=== PATIENT | female | born 1995 | race Caucasian/White ===

== ENCOUNTER 2019-09-28 04:38 | Inpatient (IN) ==
[2019-09-28] MEDS ORDERED: SODIUM BICARB INJ 100 MEQ in STERILE WATER INJ 400 ML IV PRN (06:35)
[2019-09-28] MEDS ORDERED: SODIUM PHOSPHATE IV PRN (06:35)
[2019-09-28] MEDS ORDERED: SODIUM CHLORIDE 0.9% IV PRN (06:35)
[2019-09-28] MEDS ORDERED: MAGNESIUM SULF RIDER 4 GM in PREMIX 1 EACH IV PRN (06:35)
[2019-09-28] MEDS ORDERED: DEXTROSE 10% 25 GM/250 ML BAG IV PRN ×2 (06:35)
[2019-09-28] MEDS ORDERED: MAGNESIUM SULF RIDER 2 GM in PREMIX 1 EACH IV PRN (06:35)
[2019-09-28] MEDS ORDERED: SODIUM CHLORIDE 0.9% 1,000 ML IV SCH (06:37)
[2019-09-28 06:57] LABS: Apearance,Urine CLEAR (Clear); Bacteria,Urine Occasional /HPF (Few); Bilirubin,Urine Negative (Negative); Blood, Urine Moderate mg/dL (Negative); Glucose,Urine (UA) >=500 mg/dL (Negative); Ketones,Urine 80 mg/dL (Negative); Mucus,Urine Occasional /LPF (Occasional); Nitrite,Urine Negative (Negative); Protein,Urine 100 MG/DL; RBC,Urine 32 /HPF (0-4); Squamous Epithelial Cell,Urine Occasional /HPF (0-10); Urine Color Yellow (Yellow); Urine Specific Gravity 1.017 (1.001-1.035); Urine Urobilinogen < 2.0 EU/DL (0.2-1.0); WBC,Urine 1 /HPF (0-6)
[2019-09-28 07:21] LABS: ABG Base Excess -21.6 MMOL/L (-2.5-2.5); ABG HCO3 3.7 MMOL/L (20-26); ABG Oxygen Saturation 98.2 % (95-100); Allen Test Positive
[2019-09-28 07:23] LABS: ABG PCO2 9.8 MM HG (35-48); ABG PH 7.195 (7.35-7.45)
[2019-09-28] MEDS ORDERED: ONDANSETRON 4 MG/2 ML VIAL ONE (07:58)
[2019-09-28] MEDS ORDERED: SODIUM BICARBONATE 50 MEQ/50 ML VIAL IV ONE ×3 (07:58→08:30)
[2019-09-28] MEDS: INSULIN REGULAR DRIP 100 ML IV SCH (08:06)
[2019-09-28] MEDS: ONDANSETRON 4 MG/2 ML VIAL IV PRN (08:22)
[2019-09-28] MEDS: PIPERACILLIN/TAZOBACTAM 3,375 MG in SODIUM CHLORIDE 0.9% 100 ML IV SCH ×2 (08:35→16:43)
[2019-09-28] MEDS: ENOXAPARIN 40 MG/0.4 ML SYRINGE SUBCUT SCH (08:36)
[2019-09-28 08:54] LABS: Basophils # 0.1 10*3/uL (0.0-0.2); Basophils % 0.3 % (0.0-0.8); Hematocrit 43.1 VOL% (35.7-47.0); Hemoglobin 13.1 GM/DL (12.0-16.0); Immature Granulocytes % 1.5 %; Immature Granulocytes Absolute 0.34 #; Lymphocytes # 1.7 10*3/uL (1.4-4.0); Lymphocytes % 7.5 % (21.3-54.2); Mean Corpuscular HGB Conc 30.4 GM/DL (32-36); Mean Corpuscular Volume 94.9 FL (87-102); Mean Platelet Volume 11.1 FL (9.6-12.0); Monocytes % 6.9 % (1.7-12.7); Neutrophils % 83.8 % (38.7-73.9); Platelet Count 344 T/CUMM (130-400); Red Blood Count 4.54 MC/CUMM (3.8-5.5); Red Cell Distribution Width 13.1 % (9.3-17.3); White Blood Count 22.5 T/CUMM (4-12)
[2019-09-28 09:14] LABS: Band Neutrophils 2 % (0-10); Hypochromasia Slight; Lymphocytes 8 % (20-55); Platelet Estimate Adequate; Segmented Neutrophils 83 % (50-85); Total Cells Counted 100
[2019-09-28 09:22] LABS: Calcium 8.4 MG/DL (8.5-10.1); Osmolality,Calculated 285.3 MOS/KG (273-304)
[2019-09-28] MEDS ORDERED: SODIUM BICARB INJ 100 MEQ in DEXTROSE 5% 1,000 ML IV SCH (11:00)
[2019-09-28 11:50] LABS: Calcium 7.7 MG/DL (8.5-10.1)
[2019-09-28 12:19] LABS: ABG Base Excess -19.9 MMOL/L (-2.5-2.5); ABG HCO3 10.1 MMOL/L (20-26); ABG Oxygen Saturation 98.7 % (95-100); ABG PH 7.249 (7.35-7.45); ABG TCO2 5.7 MMOL/L (23-27)
[2019-09-28 12:20] LABS: Allen Test Positive
[2019-09-28] MEDS: SODIUM CHLORIDE 0.45% 1,000 ML IV SCH ×3 (12:30→21:21)
[2019-09-28] MEDS: FLUoxetine 20 MG CAPSULE PO SCH (13:05)
[2019-09-28 13:11] LABS: ABG PCO2 14.4 MM HG (35-48)
[2019-09-28 15:50] LABS: Calcium 8.1 MG/DL (8.5-10.1); Osmolality,Calculated 283.5 MOS/KG (273-304)
[2019-09-28 19:56] LABS: Calcium 7.9 MG/DL (8.5-10.1); Osmolality,Calculated 280.1 MOS/KG (273-304)
[2019-09-28] MEDS ORDERED: DEXTROSE 50% 25 GM/50 ML VIAL IV PRN (20:10)
[2019-09-28] MEDS ORDERED: GLUCAGON 1 MG VIAL IM PRN (20:10)
[2019-09-28] MEDS ORDERED: DEXTROSE 10% 250 ML IV ONE (20:36)
[2019-09-28] MEDS: SODIUM BICARB INJ 50 MEQ in DEXTROSE 5% 1,000 ML IV SCH (20:59)
[2019-09-28 22:32] LABS: Calcium 7.8 MG/DL (8.5-10.1); Osmolality,Calculated 276.7 MOS/KG (273-304)
[2019-09-28] MEDS: POTASSIUM CHLORIDE RIDER 10 MEQ in PREMIX 1 EACH IV PRN (23:00)
[2019-09-29] MEDS: SODIUM BICARB INJ 50 MEQ, POTASSIUM CHLORIDE INJ 20 MEQ in DEXTROSE 5% 1,000 ML IV SCH ×2 (00:10→08:19)
[2019-09-29] MEDS: POTASSIUM CHLORIDE RIDER 10 MEQ in PREMIX 1 EACH IV PRN ×3 (00:12→04:25)
[2019-09-29] MEDS: PIPERACILLIN/TAZOBACTAM 3,375 MG in SODIUM CHLORIDE 0.9% 100 ML IV SCH ×3 (02:10→17:49)
[2019-09-29 02:31] LABS: Basophils % 0.3 % (0.0-0.8); Eosinophils # 0.1 10*3/uL (0.0-0.87); Eosinophils % 0.7 % (0.00-10.9); Hematocrit 35.8 VOL% (35.7-47.0); Hemoglobin 11.6 GM/DL (12.0-16.0); Immature Granulocytes % 0.6 %; Immature Granulocytes Absolute 0.07 #; Lymphocytes # 2.4 10*3/uL (1.4-4.0); Lymphocytes % 20.2 % (21.3-54.2); Mean Corpuscular HGB Conc 32.4 GM/DL (32-36); Mean Corpuscular Volume 89.3 FL (87-102); Mean Platelet Volume 10.2 FL (9.6-12.0); Monocytes % 6.3 % (1.7-12.7); Neutrophils % 71.9 % (38.7-73.9); Platelet Count 278 T/CUMM (130-400); Red Blood Count 4.01 MC/CUMM (3.8-5.5); Red Cell Distribution Width 13.2 % (9.3-17.3); White Blood Count 11.6 T/CUMM (4-12)
[2019-09-29 02:44] LABS: Calcium 7.9 MG/DL (8.5-10.1); Osmolality,Calculated 276.8 MOS/KG (273-304)
[2019-09-29] MEDS: SODIUM BICARB INJ 50 MEQ in DEXTROSE 5% 1,000 ML IV SCH (06:38)
[2019-09-29 08:13] LABS: Calcium 7.9 MG/DL (8.5-10.1); Osmolality,Calculated 276.5 MOS/KG (273-304)
[2019-09-29] MEDS ORDERED: DEXT 5% NACL 0.45% KCL 40 MEQ 40 MEQ/1,000 ML BAG IV SCH (08:30)
[2019-09-29] MEDS ORDERED: INSULIN NPH/REGULAR 70/30 100 UNIT/ML SUBCUT SCH ×2 (08:30→16:30)
[2019-09-29] MEDS: ONDANSETRON 4 MG/2 ML VIAL IV PRN (09:04)
[2019-09-29] MEDS: FLUoxetine 20 MG CAPSULE PO SCH (09:05)
[2019-09-29] MEDS: ENOXAPARIN 40 MG/0.4 ML SYRINGE SUBCUT SCH (09:05)
[2019-09-29] MEDS ORDERED: POTASSIUM PHOSPHATE 30 MMOL in SODIUM CHLORIDE 0.9% 250 ML IV ONE (10:00)
[2019-09-29] MEDS: INSULIN GLARGINE 100 UNIT/ML SUBCUT SCH (11:38)
[2019-09-29] MEDS ORDERED: POTASSIUM CHLORIDE INJ 40 MEQ in SODIUM CHLORIDE 0.45% 1,000 ML IV SCH (12:30)
[2019-09-29 12:31] LABS: Calcium 7.7 MG/DL (8.5-10.1)
[2019-09-29] MEDS: INSULIN REGULAR DRIP 100 ML IV SCH (12:35)
[2019-09-29] MEDS ORDERED: DEXTROSE 50% 25 GM/50 ML VIAL IV PRN (15:12)
[2019-09-29] MEDS ORDERED: GLUCAGON 1 MG VIAL IM PRN (15:12)
[2019-09-29] MEDS: INSULIN LISPRO 100 UNIT/ML SUBCUT SCH ×2 (17:48→20:58)
[2019-09-29] MEDS ORDERED: INSULIN GLARGINE 100 UNIT/ML SUBCUT SCH (21:00)
[2019-09-30] MEDS: PIPERACILLIN/TAZOBACTAM 3,375 MG in SODIUM CHLORIDE 0.9% 100 ML IV SCH ×2 (00:38→09:56)
[2019-09-30] MEDS: INSULIN LISPRO 100 UNIT/ML SUBCUT SCH ×4 (07:38→21:55)
[2019-09-30] MEDS: ENOXAPARIN 40 MG/0.4 ML SYRINGE SUBCUT SCH (10:03)
[2019-09-30] MEDS: FLUoxetine 20 MG CAPSULE PO SCH (10:03)
[2019-09-30] MEDS: INSULIN NPH/REGULAR 70/30 100 UNIT/ML SUBCUT SCH (10:03)
[2019-09-30] MEDS: INSULIN GLARGINE 100 UNIT/ML SUBCUT SCH (10:09)
[2019-09-30] MEDS: AMOXICILLIN 875 MG TABLET PO SCH ×2 (11:29→21:59)
[2019-09-30] MEDS ORDERED: INSULIN NPH/REGULAR 70/30 100 UNIT/ML SUBCUT SCH (16:30)
[2019-09-30] MEDS ORDERED: QUEtiapine 25 MG TABLET PO SCH (21:00)
[2019-10-01 04:32] LABS: Basophils % 0.5 % (0.0-0.8); Eosinophils # 0.2 10*3/uL (0.0-0.87); Hematocrit 37.5 VOL% (35.7-47.0); Hemoglobin 12.4 GM/DL (12.0-16.0); Immature Granulocytes % 0.2 %; Immature Granulocytes Absolute 0.01 #; Lymphocytes # 2.3 10*3/uL (1.4-4.0); Lymphocytes % 57.5 % (21.3-54.2); Mean Corpuscular HGB Conc 33.1 GM/DL (32-36); Mean Corpuscular Volume 87.2 FL (87-102); Mean Platelet Volume 10.8 FL (9.6-12.0); Monocytes % 6.7 % (1.7-12.7); Neutrophils % 30.1 % (38.7-73.9); Platelet Count 255 T/CUMM (130-400); Red Cell Distribution Width 13.3 % (9.3-17.3)
[2019-10-01 05:00] LABS: Calcium 8.8 MG/DL (8.5-10.1); Osmolality,Calculated 282.7 MOS/KG (273-304)
[2019-10-01 05:30] LABS: Eosinophils 2 % (0-10); Lymphocytes 48 % (20-55); Segmented Neutrophils 43 % (50-85); Total Cells Counted 100
[2019-10-01 05:31] LABS: Hypochromasia Slight; Microcytosis Slight; Platelet Estimate Normal
[2019-10-01 05:32] LABS: Stomatocytes Slight; Target Cells Slight
[2019-10-01 05:33] LABS: Ovalocytes Slight
[2019-10-01] MEDS: ENOXAPARIN 40 MG/0.4 ML SYRINGE SUBCUT SCH (08:15)
[2019-10-01] MEDS: AMOXICILLIN 875 MG TABLET PO SCH (08:16)
[2019-10-01] MEDS: FLUoxetine 20 MG CAPSULE PO SCH (08:16)
[2019-10-01] MEDS: INSULIN NPH/REGULAR 70/30 100 UNIT/ML SUBCUT SCH (08:17)
[2019-10-01] MEDS: INSULIN LISPRO 100 UNIT/ML SUBCUT SCH ×2 (08:18→15:31)
[2019-10-01] MEDS ORDERED: POTASSIUM CHLORIDE 20 MEQ TABLET PO ONE (09:53)
[2019-10-01] MEDS ORDERED: INSULIN NPH/REGULAR 70/30 100 UNIT/ML SUBCUT SCH ×2 (11:08)
[2019-10-01 12:59] VITALS: BP 103/73
[2019-10-02] MEDS ORDERED: POTASSIUM CHLORIDE 20 MEQ TABLET PO SCH (09:00)
== END 2019-10-01 15:15 | disposition home or self-care (01) | DRG 638 ==
LOC: SUATTDRO 06:25 → N.CC 06:40 → SUATTDRO 06:40 → N.4E 09-30 13:37
PROVIDERS: ADMIT Internal Medicine; ATTEND Hospitalist

== ENCOUNTER 2019-10-06 05:56 | Inpatient (IN) ==
[2019-10-06] MEDS ORDERED: ONDANSETRON 4 MG/2 ML VIAL IV PRN (08:35)
[2019-10-06] MEDS ORDERED: ACETAMINOPHEN 325 MG TABLET PO PRN (08:35)
[2019-10-06] MEDS ORDERED: PROMETHAZINE 25 MG/1 ML VIAL IM PRN (08:35)
[2019-10-06] MEDS ORDERED: MAGNESIUM SULF RIDER 2 GM in PREMIX 1 EACH IV PRN (08:38)
[2019-10-06] MEDS ORDERED: MAGNESIUM SULF RIDER 4 GM in PREMIX 1 EACH IV PRN (08:38)
[2019-10-06] MEDS ORDERED: DEXTROSE 10% 250 ML BAG IV PRN ×2 (08:38)
[2019-10-06] MEDS ORDERED: LACTATED RINGERS 1,000 ML IV ONE (08:40)
[2019-10-06] MEDS ORDERED: INSULIN REGULAR 100 UNIT/ML IV ONE (08:41)
[2019-10-06] MEDS ORDERED: MAGNESIUM SULF RIDER 2 GM in PREMIX 1 EACH IV ONE (08:43)
[2019-10-06] MEDS ORDERED: INSULIN REGULAR DRIP 100 ML IV SCH (09:00)
[2019-10-06] MEDS ORDERED: POTASSIUM CHLORIDE INJ 20 MEQ in LACTATED RINGERS 1,000 ML IV SCH (09:00)
[2019-10-06 09:10] LABS: Apearance,Urine CLEAR (Clear); Bilirubin,Urine Negative (Negative); Blood, Urine Small mg/dL (Negative); Glucose,Urine (UA) >=500 mg/dL (Negative); Ketones,Urine 80 mg/dL (Negative); Mucus,Urine Occasional /LPF (Occasional); Nitrite,Urine Negative (Negative); Protein,Urine 30 MG/DL; Squamous Epithelial Cell,Urine Occasional /HPF (0-10); Urine Color Straw (Yellow); Urine Specific Gravity 1.023 (1.001-1.035); Urine Urobilinogen < 2.0 EU/DL (0.2-1.0); WBC,Urine <1 /HPF (0-6)
[2019-10-06 09:14] LABS: Calcium 8.2 MG/DL (8.5-10.1); Osmolality,Calculated 295.7 MOS/KG (273-304)
[2019-10-06] MEDS: PANTOPRAZOLE 40 MG TABLET PO SCH (09:35)
[2019-10-06] MEDS: ENOXAPARIN 40 MG/0.4 ML SYRINGE SUBCUT SCH (09:35)
[2019-10-06] MEDS: POTASSIUM CHLORIDE INJ 10 MEQ in DEXTROSE 5% LACTATED RINGERS 1,000 ML IV SCH ×2 (13:33→21:50)
[2019-10-06 14:58] LABS: Calcium 7.9 MG/DL (8.5-10.1); Osmolality,Calculated 274.2 MOS/KG (273-304)
[2019-10-06 22:11] LABS: Calcium 8.3 MG/DL (8.5-10.1)
[2019-10-06] MEDS: POTASSIUM CHLORIDE RIDER 10 MEQ in PREMIX 1 EACH IV PRN ×2 (22:38→23:40)
[2019-10-07] MEDS: POTASSIUM CHLORIDE INJ 10 MEQ in DEXTROSE 5% LACTATED RINGERS 1,000 ML IV SCH ×2 (05:37→17:49)
[2019-10-07 05:44] LABS: Basophils % 0.2 % (0.0-0.8); Eosinophils % 0.3 % (0.00-10.9); Hematocrit 34.3 VOL% (35.7-47.0); Hemoglobin 11.5 GM/DL (12.0-16.0); Immature Granulocytes % 0.7 %; Immature Granulocytes Absolute 0.07 #; Lymphocytes # 2.6 10*3/uL (1.4-4.0); Lymphocytes % 27.6 % (21.3-54.2); Mean Corpuscular HGB Conc 33.5 GM/DL (32-36); Mean Corpuscular Volume 87.3 FL (87-102); Mean Platelet Volume 10.5 FL (9.6-12.0); Monocytes % 9.2 % (1.7-12.7); Platelet Count 258 T/CUMM (130-400); Red Blood Count 3.93 MC/CUMM (3.8-5.5); Red Cell Distribution Width 13.2 % (9.3-17.3); White Blood Count 9.6 T/CUMM (4-12)
[2019-10-07 06:00] LABS: Osmolality,Calculated 276.4 MOS/KG (273-304)
[2019-10-07] MEDS: POTASSIUM CHLORIDE RIDER 10 MEQ in PREMIX 1 EACH IV PRN ×3 (06:04→08:16)
[2019-10-07] MEDS ORDERED: INSULIN NPH/REGULAR 70/30 100 UNIT/ML SUBCUT SCH ×2 (08:00→16:30)
[2019-10-07] MEDS: POTASSIUM CHLORIDE 20 MEQ TABLET PO SCH ×5 (08:35→20:56)
[2019-10-07] MEDS: INSULIN NPH/REGULAR 70/30 100 UNIT/ML SUBCUT SCH (08:35)
[2019-10-07] MEDS: INSULIN REGULAR 100 UNIT/ML SUBCUT SCH ×4 (08:38→20:40)
[2019-10-07] MEDS: FLUoxetine 20 MG CAPSULE PO SCH (09:38)
[2019-10-07] MEDS: PANTOPRAZOLE 40 MG TABLET PO SCH (09:38)
[2019-10-07] MEDS: ENOXAPARIN 40 MG/0.4 ML SYRINGE SUBCUT SCH (09:38)
[2019-10-07] MEDS ORDERED: SODIUM CHLORIDE 0.65% NASAL SPRAY 45 ML BOTTLE BOTH NARES PRN (11:13)
[2019-10-07] MEDS ORDERED: QUEtiapine 25 MG TABLET PO SCH (21:00)
[2019-10-08] MEDS: INSULIN REGULAR 100 UNIT/ML SUBCUT SCH ×4 (00:55→12:27)
[2019-10-08 06:05] LABS: Calcium 8.3 MG/DL (8.5-10.1); Osmolality,Calculated 287.6 MOS/KG (273-304)
[2019-10-08] MEDS: POTASSIUM CHLORIDE 20 MEQ TABLET PO SCH ×3 (08:44→12:16)
[2019-10-08] MEDS ORDERED: AZITHROMYCIN 250 MG TABLET PO ONE (09:10)
[2019-10-08] MEDS ORDERED: FLUTICASONE 50 MCG NASAL SPRAY 16 GM BOTTLE BOTH NARES SCH (09:13)
[2019-10-08] MEDS ORDERED: MONTELUKAST 10 MG TABLET PO ONE (09:14)
[2019-10-08] MEDS: ENOXAPARIN 40 MG/0.4 ML SYRINGE SUBCUT SCH (10:43)
[2019-10-08] MEDS: INSULIN NPH/REGULAR 70/30 100 UNIT/ML SUBCUT SCH (10:43)
[2019-10-08] MEDS: PANTOPRAZOLE 40 MG TABLET PO SCH (10:44)
[2019-10-08] MEDS: FLUoxetine 20 MG CAPSULE PO SCH (10:44)
[2019-10-08 12:10] VITALS: BP 110/60
== END 2019-10-08 14:14 | disposition home or self-care (01) | DRG 638 ==
LOC: N.ICU 06:34 → SUATTDRO 06:34 → N.4E 10-07 11:47
PROVIDERS: ADMIT Internal Medicine; ATTEND Internal Medicine